=== PATIENT | female | born 1985 | race Caucasian/White ===

== ENCOUNTER 2023-04-02 16:35 | Emergency (ER) | payer BC, SELFPAY ==
[2023-04-02 16:40] VITALS: BP 100/65; PULSE 81; RESP 16; TEMP 36.7; O2SAT 100
[2023-04-02 17:43] LABS: Lactate* 1.6 mmol/L (0.5-1.9)
[2023-04-02 17:44] LABS: Basophils Absolute Auto 0.02 K/uL (0.00-0.30); Basophils Percent Auto 0.2 % (0.0-3.0); Eosinophils Absolute Auto 0.23 K/uL (0.00-0.50); Eosinophils Percent Auto 2.4 % (0.0-7.0); Hematocrit 41.5 % (33.0-51.0); Immature Granulocytes Abs Auto 0.01 K/uL (0.00-0.30); Immature Granulocytes Pct Auto 0.1 %; Lymphocytes Absolute Auto 4.14 K/uL (0.90-2.90); Lymphocytes Percent Auto 42.4 % (20-44); Mean Corpuscular HGB Conc 34 gm/dL (32-36); Mean Corpuscular Hemoglobin 31 pg (26-34); Mean Corpuscular Volume 92 fL (80-100); Monocytes Percent Auto 7.4 % (0.0-11.0); Neutrophils Absolute Auto 4.65 K/uL (1.7-7.0); Neutrophils Percent Auto 47.5 % (42.0-72.0); Platelet Count* 294 K/uL (140-440); RDW Coefficient of Variation % 12.7 % (11.5-15.5); Red Blood Count 4.53 m/uL (4.00-5.20); White Blood Count* 9.77 K/uL (4.50-11.00)
[2023-04-02 17:47] LABS: Slide Review Reflex No
--- NOTE | 2023-04-02 17:48 | ED.GENADULT ---
HPI - General Adult General Time Seen by Provider: 17:48 Date Seen: 04/02/23 Chief complaint: GI Bleed Stated complaint: Black stool, abdominal pain Time Seen by Provider: 04/02/23 17:33 Source: patient, RN notes reviewed and old records reviewed Mode of arrival: ambulatory Limitations: no limitations History of Present Illness HPI narrative: 37-year-old female who comes in today with concern for dark stools and left-sided abdominal pain. Patient notes two black and ?pasty? stools overnight, subsequently a normal formed brown stool. Left-sided abdominal pain with this. Denies chest pain or shortness of breath, drinking wine cooler last week but denies any other alcohol use, no epigastric pain. Has not taken anything for symptoms. Related Data Home Medications Medication Instructions Recorded Confirmed aripiprazole 10 mg tablet 10 mg PO DAILY 04/02/23 04/02/23 buspirone 10 mg tablet 10 mg PO DAILY 04/02/23 04/02/23 duloxetine 20 mg capsule,delayed 20 mg PO BID 04/02/23 04/02/23 release hydroxyzine HCl 50 mg tablet 50 mg PO Q6H PRN anxiety 04/02/23 04/02/23 Previous Rx's Medication Instructions Recorded pantoprazole 40 mg granules 40 mg PO DAILY #30 ea 04/02/23 delayed-release for susp in packet (Protonix) Allergies Allergy/AdvReac Type Severity Reaction Status Date / Time amitriptyline AdvReac Verified 04/02/23 16:46 venlafaxine [From Effexor] AdvReac Verified 04/02/23 16:46 trazadone AdvReac Uncoded 04/02/23 16:46 Review of Systems Status of ROS: Reports: 10 or more systems reviewed and unremarkable except as noted in History and below PFSH PFSH Social History Smoking Status: Current every day smoker What tobacco products do you use: cigarettes Smoking packs per day: 0.5 Smoking cigarettes per day: 10.0 Years smoked: 22 Smoking pack-years: 11.00 Second hand tobacco smoke exposure: Yes How often do you have a drink containing alcohol: monthly or less AUDIT-C Alcohol total score: 1 Non-prescribed substance use: marijuana (any form) service: No Exam Narrative: Exam Narrative: General: Well-developed and well-nourished, no acute distress Head: Atraumatic and normocephalic Eyes: Pupils are equal reactive, extraocular motions intact, conjunctiva clear ENT: External nose and ears are normal, posterior pharynx without erythema or exudate Neck: No midline cervical tenderness, full spontaneous range of motion the neck, trachea midline, no adenopathy Heart: Regular rate and rhythm no murmurs or thrills Lungs: Clear to auscultation bilaterally without wheezes or crackles Abdomen: Soft, left-sided abdominal tenderness, nondistended with active bowel sounds Musculoskeletal: No tenderness, deformity, or edema Neurologic: Awake, alert, and oriented x3, no gross focal neurologic deficits, cranial nerves intact as tested Psych: Mood and affect are appropriate Skin: No rashes Const: Vital Signs, click to edit/add: Vital Signs - 24 hr 04/02/23 16:40 04/02/23 17:54 Temperature 98.1 F Pulse Rate [Pulse Oximeter] 81 72 Respiratory Rate 16 17 Blood Pressure [Ri ght Upper Arm] 100/65 99/61 Pulse Oximetry 100 100 Oxygen Delivery Me thod Room Air Room Air Course Course Hospital Course: Patient seen examined, prior records reviewed. Patient presents today with left-sided abdominal pain and dark colored stools which have resolved. She has some left abdominal tenderness. Suspect possible colitis, diverticulitis also possible. With black colored stools, upper GI bleed including gastritis or also possible, no hematemesis and the dark colored stools have largely resolved. Labs ordered along with CT scan, if these are reassuring patient can be discharged with outpatient follow-up. Protonix IV is given as well. Reevaluation(s) Time of Reevaluation #1: 18:41 Reevaluation #1: Labs independently interpreted by me with normal CBC, no anemia. Basic panel is reassuring, lactate is 1.6. CT scan of the abdomen pelvis independently interpreted by me does not demonstrate any acute infectious or inflammatory change in the area of patient's pain on the left in otherwise is normal. Patient is stable for discharge with outpatient follow-up, will be started on Protonix for possible gastritis or upper GI source of bleeding. Time of Reevaluation #2: 19:27 Reevaluation #2: Radiology interpretation of CT scan shows mild colitis of the distal rectosigmoid colon. As patient has no fever, elevated white blood cell count, or review compromise and is not having diarrhea and melena has improved, would continue to watch this. Follow-up with primary care next week. Vital Signs Vital signs: Initial Vital Signs Temperature 98.1 F 04/02/23 16:40 Temperature Source Temporal Artery Scan 04/02/23 16:40 Pulse Rate 81 04/02/23 16:40 Pulse Rhythm Regular 04/02/23 16:40 Respiratory Rate 16 04/02/23 16:40 Blood Pressure 100/65 04/02/23 16:40 Blood Pressure Mean 76 04/02/23 16:40 Blood Pressure Position Sitting 04/02/23 16:40 Pulse Oximetry 100 04/02/23 16:40 Oxygen Delivery Method Room Air 04/02/23 16:40 Vital Signs Temperature 98.1 F 04/02/23 16:40 Pulse Rate 81 04/02/23 16:40 Respiratory Rate 16 04/02/23 16:40 Blood Pressure 100/65 04/02/23 16:40 Pulse Oximetry 100 04/02/23 16:40 Oxygen Delivery Method Room Air 04/02/23 16:40 Temperature 98.1 F 04/02/23 16:40 Pulse Rate 72 04/02/23 17:54 Respiratory Rate 17 04/02/23 17:54 Blood Pressure 99/61 04/02/23 17:54 Pulse Oximetry 100 04/02/23 17:54 Oxygen Delivery Method Room Air 04/02/23 17:54 Medical Decision Making Medical Records Medical records reviewed: Yes I reviewed the patient's medical records Lab Data Lab results reviewed: Yes I reviewed the patient's lab results Labs: Lab Results 04/02/23 Range/Units 07:40 WBC 9.77 (4.50-11.00) K/uL RBC 4.53 (4.00-5.20) m/uL Hgb 14.0 (12.0-16.0) gm/dL Hct 41.5 (33.0-51.0) % MCV 92 (80-100) fL MCH 31 (26-34) pg MCHC 34 (32-36) gm/dL RDW Coeff of Charles 12.7 (11.5-15.5) % Plt Count 294 (140-440) K/uL Neut % (Auto) 47.5 (42.0-72.0) % Lymph % (Auto) 42.4 (20-44) % [place] % (Auto) 7.4 (0.0-11.0) % Eos % (Auto) 2.4 (0.0-7.0) % Baso % (Auto) 0.2 (0.0-3.0) % Neut # (Auto) 4.65 (1.7-7.0) K/uL Lymph # (Auto) 4.14 H (0.90-2.90) K/uL [place] # (Auto) 0.70 (0.00-0.90) K/UL Eos # (Auto) 0.23 (0.00-0.50) K/uL Baso # (Auto) 0.02 (0.00-0.30) K/uL Sodium 140 (135-149) mmol/L Potassium 3.9 (3.6-5.1) mmol/L Chloride 104 (96-114) mmol/L Carbon Dioxide 29 (20-32) mmol/L BUN 15 (5-24) mg/dL Creatinine 0.7 (0.5-1.5) mg/dL Estimated GFR 114 ml/min Glucose 73 (60-115) mg/dL Lactate 1.6 (0.5-1.9) mmol/L Calcium 9.0 (8.4-10.6) mg/dL Discharge Plan Discharge Clinical Impression: Left sided abdominal pain, Melena, Colitis Patient Disposition: Home, Self-Care Condition: Stable Instructions: Melena (ED), Colitis (ED) Additional Instructions: Take Tylenol as needed for pain, avoid ibuprofen for now. Take Protonix as prescribed for 1 month Follow-up with primary care doctor next week for consideration for colonoscopy or upper GI endoscopy Discharge Diet: Regular Prescriptions: New pantoprazole [Protonix] [address] for susp in packet 40 mg PO DAILY Qty: 30 0RF No Action hydroxyzine HCl 50 mg tablet 50 mg PO Q6H PRN (Reason: anxiety) buspirone 10 mg tablet 10 mg PO DAILY aripiprazole 10 mg tablet 10 mg PO DAILY duloxetine 20 mg capsule,delayed release(DR/EC) 20 mg PO BID Stand Alone Forms: [employer] Info Instructions
[2023-04-02 17:54] VITALS: BP 99/61; PULSE 72; RESP 17; O2SAT 100
[2023-04-02 17:56] LABS: Chloride* 104 mmol/L (96-114); Potassium* 3.9 mmol/L (3.6-5.1); Sodium* 140 mmol/L (135-149)
[2023-04-02 17:59] LABS: Carbon Dioxide* 29 mmol/L (20-32); Creatinine* 0.7 mg/dL (0.5-1.5); Estimated Glomerular Filt Rate 114 ml/min
[2023-04-02 18:00] LABS: Blood Urea Nitrogen* 15 mg/dL (5-24); Glucose* 73 mg/dL (60-115)
--- NOTE | 2023-04-02 18:08 | CRLHL7_ITS ---
For Patients: As a result of the Century Cures Act, medical imaging exams and procedure reports are released immediately into your electronic medical record. You may view this report before your referring provider. If you have questions, please contact your health care provider. INDICATION: Left abdominal pain. TECHNIQUE: CT abdomen and pelvis acquired with 57 mL Isovue 370 contrast. COMPARISON: None. FINDINGS: Lower chest: No focal consolidation. Broad-based subpleural 0.5 cm nodule in the right lower lobe, may reflect subsegmental atelectasis. Similarly, punctate subpleural nodule in the right middle lobe. Liver: Too small to characterize hypodense hepatic lesion in segment 2, likely benign in the absence of a known malignancy. Gallbladder and bile ducts: Unremarkable. Pancreas: Unremarkable. Spleen: Unremarkable. Adrenal glands: Unremarkable. Kidneys: Kidneys enhance symmetrically, without hydronephrosis. Retroperitoneum: No lymphadenopathy. Bowel and mesentery: No evidence of bowel obstruction. The appendix appears normal in caliber. Evaluation of the bowel and mesentery is limited secondary to a paucity of intra-abdominal fat. There is mild pericolonic inflammation involving the distal rectosigmoid colon. No significant ascites. No definite pneumoperitoneum. Bladder: Unremarkable for degree of distension. Reproductive organs: Unremarkable. Dominant follicle is noted within the left ovary. Pelvic lymph nodes: No lymphadenopathy. Vessels: There is significant narrowing of the left renal vein as it crosses between the abdominal aorta and superior mesenteric artery. Abdominal wall: No acute abdominal wall abnormality. Bones: L6/S1 transitional vertebrae, with degenerative changes at L5-L6. IMPRESSION: 1. Mild colitis of the distal rectosigmoid colon. 2. Significant narrowing of the left renal vein as it crosses between the abdominal aorta and superior mesenteric artery, which can be seen in setting of nutcracker Syndrome. 3. Subpleural nodularity in the right lung base, may reflect subsegmental atelectasis. Consider optional follow up CT chest in 12 months, per Fleischner guidelines. Please note that all CT scans at this facility use dose modulation, iterative reconstruction, and/or weight-based dosing when appropriate to reduce radiation dose to as low as reasonably achievable. Dictated by Charles Thomas MD @ 04/02/2023 7:18:42 PM (Electronically Signed)
[2023-04-02] MEDS: 0.9 % SODIUM CHLORIDE 1000 ml 1,000 ML IV (18:37)
[2023-04-02] MEDS: PANTOPRAZOLE SODIUM 40 MG INJ IVP (18:47)
[2023-04-02 19:07] VITALS: O2SAT 97
[2023-04-02 19:51] VITALS: BP 99/61; PULSE 72; RESP 17; TEMP 36.7
[2023-04-02 19:52] VITALS: BP 108/74; PULSE 78; RESP 16; TEMP 36.7; O2SAT 97
== END 2023-04-02 19:52 | disposition home or self-care (01) ==
PROVIDERS: Emergency Provider Family Medicine
DX: K92.1 Melena (principal); A09 Infectious gastroenteritis and colitis, unspecified; R10.9 Unspecified abdominal pain
CPT/HCPCS: 36415; 74177; 80048; 83605; 85025; 86850; 86900; 86901; 94761; 96374; 99284; 99285; C9113; J7030; Q9967